=== PATIENT | male | born 1965 | race Caucasian/White ===

== ENCOUNTER 2022-03-13 16:05 | Emergency (ER) | payer BC ==
[~2022-03-13] VITALS: Ht 172.7 cm; Wt 75.0 kg
[2022-03-13] MEDS ORDERED: normal saline 1000ML IV soln IV ONE (16:20)
[2022-03-13] MEDS ORDERED: TETanus/Pertussis (Acell)/Diphther VAC/PF (Tdap-Adult) 0.5ml syringe IMVAC ONE (16:30)
[2022-03-13] MEDS ORDERED: LIDOcaine 1.5% w/epinephrine 1:200,000 5ml ampul IJ ONE (16:30)
[2022-03-13 16:38] LABS: BASOPHILS % (AUTO) 0.3 % (0-1); EOSINOPHILS % (AUTO) 0.3 % (0-6); HEMATOCRIT 42.8 % (42.0-52.0); HEMOGLOBIN 14.7 g/dl (14.0-17.9); LYMPHOCYTES # (AUTO) 0.2 X10'3 (1.1-4.8); LYMPHOCYTES % (AUTO) 2.5 % (21-51); MEAN CORPUSCULAR HEMOGLOBIN 31.5 PG (27.0-31.0); MEAN CORPUSCULAR HGB CONC 34.3 g/dL (33.0-36.5); MEAN PLATELET VOLUME 8.2 FL (7.4-10.4); MONOCYTES # (AUTO) 0.5 X10'3 (0-0.9); MONOCYTES % (AUTO) 6.3 % (2-12); NEUTROPHILS # (AUTO) 6.7 X10'3 (1.8-7.7); NEUTROPHILS % (AUTO) 90.6 % (42-75); PLATELET COUNT 147 X10'3 (140-440); RED BLOOD COUNT 4.65 X10'6 (4.70-6.10); RED CELL DISTRIBUTION WIDTH 13.7 % (11.5-14.5); WHITE BLOOD COUNT 7.3 X10'3 (4.5-11.0)
[2022-03-13] MEDS ORDERED: LIDOcaine 1% W/epiNEPHrine 1:100,000 20ml vial IJ ONE (16:45)
[2022-03-13 16:54] LABS: ALANINE AMINOTRANSFERASE 21 U/L (12-78); ALBUMIN/GLOBULIN RATIO 1.3 (1.1-1.5); ALKALINE PHOSPHATASE 62 IU/L (46-116); ANION GAP 11 (8-16); ASPARTATE AMINO TRANSFERASE 21 U/L (10-37); BILIRUBIN,TOTAL 0.7 MG/DL (0.1-1.0); BLOOD UREA NITROGEN 10 MG/DL (7-18); BUN/CREATININE RATIO 11.4 (5.4-32.0); CALCIUM 8.5 MG/DL (8.5-10.1); CHLORIDE 102 MMOL/L (99-107); CREATININE 0.88 MG/DL (0.60-1.10); GLUCOSE 119 MG/DL (70-104); POTASSIUM 4.2 MMOL/L (3.5-5.1); SODIUM 139 MMOL/L (135-145); TOTAL CARBON DIOXIDE 26.4 MMOL/L (24-32); TOTAL PROTEIN 7.1 G/DL (6.4-8.2); eGFR 90 ML/MIN
[2022-03-13 16:56] LABS: CREATINE KINASE 159 U/L (39-308)
[2022-03-13] MEDS ORDERED: CEPH250T PO (18:39)
--- NOTE | 2022-03-13 18:39 | NUR ---
ASSUMED CARE OF PT. LACERATION REPAIR COMPLETE. PT PASS GAIT TEST. ANTICIPATING DC
[2022-03-13 18:40] VITALS: BP 124/79
== END 2022-03-13 19:01 | disposition home or self-care (01) ==
LOC: ER 16:06
DX: S01.112A Laceration without foreign body of left eyelid and periocular area, initial encounter (principal); T67.1XXA Heat syncope, initial encounter; X58.XXXA Exposure to other specified factors, initial encounter; Y93.89 Activity, other specified; Y92.89 Other specified places as the place of occurrence of the external cause; Y99.8 Other external cause status
CPT/HCPCS: 36415; 70450; 71045; 80053; 82550; 84484; 85025; 93005; 96360; 96361; 99285; A6222; J7030; 90715; A6258

== ENCOUNTER 2023-03-20 12:32 | Emergency (ER) | payer OTHER, BC ==
[~2023-03-20] VITALS: Ht 172.7 cm; Wt 73.6 kg
[2023-03-20 12:41] VITALS: BP 123/76; PULSE 75; RESP 17; TEMP 98.2; O2SAT 99
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
[2023-03-20] MEDS ORDERED: ORPH100T4 PO (15:54)
== END 2023-03-20 16:31 | disposition home or self-care (01) ==
LOC: ER 12:33
DX: S13.4XXA Sprain of ligaments of cervical spine, initial encounter (principal); V87.7XXA Person injured in collision between other specified motor vehicles (traffic), initial encounter; Y93.89 Activity, other specified; Y92.89 Other specified places as the place of occurrence of the external cause; Y99.8 Other external cause status
CPT/HCPCS: 99283